=== PATIENT | male | born 1955 | race Caucasian/White ===

== ENCOUNTER 2018-05-19 17:45 | Emergency (ER) | payer OTHER ==
[2018-05-19 17:51] VITALS: BP 158/85
--- NOTE | 2018-05-19 18:18 | ER Document Report ---
ED Medical Screen (RME) - General Chief Complaint: Leg Pain Stated Complaint: LEG PAIN Time Seen by Provider: 05/19/18 18:09 Mode of Arrival: Ambulatory Information source: Patient Notes: 62-year-old male presents emergency department with complaints of left lower extremity swelling, pain, warmth. He states that it started this afternoon. He denies any history of blood clots in the past. He is not currently on any medications. Patient denies any fever or chills. I have greeted and performed a rapid initial assessment of this patient. A comprehensive ED assessment and evaluation of the patient, analysis of test results and completion of the medical decision making process will be conducted by additional ED providers. PHYSICAL EXAMINATION: GENERAL: Well-appearing, well-nourished and in no acute distress. HEAD: Atraumatic, normocephalic. EYES: Pupils equal round extraocular movements intact, conjunctiva are normal. ENT: Nares patent NECK: Normal range of motion LUNGS: No respiratory distress Musculoskeletal: Normal range of motion. LLE tenderness to palpation NEUROLOGICAL: Normal speech, normal gait. PSYCH: Normal mood, normal affect. SKIN: Warm, Dry, normal turgor. erythema, warmth over the LLE. TRAVEL OUTSIDE OF THE [place] IN LAST 30 DAYS: No - Related Data Allergies/Adverse Reactions: gabapentin Allergy (Verified 05/19/18 17:46) Past Medical History - Social History Chew tobacco use (# tins/day): No Frequency of alcohol use: None Drug Abuse: None Renal/ Medical History: Denies: Hx Peritoneal Dialysis Past Surgical History: Reports: Hx Tonsillectomy Physical Exam - Vital signs Vitals: Temp Pulse Resp BP Pulse Ox 99.1 F 103 H 16 158/85 H 96 05/19/18 17:50 05/19/18 17:50 05/19/18 17:50 05/19/18 17:50 05/19/18 17:50 Course - Vital Signs Vital signs: Temp Pulse Resp BP Pulse Ox 99.1 F 103 H 16 158/85 H 96 05/19/18 17:50 05/19/18 17:50 05/19/18 17:50 05/19/18 17:50 05/19/18 17:50 Doctor's Discharge - Discharge Referrals: RJ OGDEN MD [Primary Care Provider] - Follow up as needed
[2018-05-19] MEDS ORDERED: CEPHALEXIN 500 MG CAPSULE PO ONE (19:22)
--- NOTE | 2018-05-19 19:28 | ER Document Report ---
ED General - General Chief Complaint: Leg Pain Stated Complaint: LEG PAIN Time Seen by Provider: 05/19/18 18:09 Mode of Arrival: Ambulatory Notes: Patient is a 62-year-old male with a past medical history of hypertension, obesity, tobacco abuse who presents with 12-24 hours of progressively worsening erythema and pain over the left mid tibial surface. Patient states the area started this morning and has gotten progressively worse over that period of time. States he was encouraged to come to the emergency department by his who is worried about the possibility of a blood clot in the leg. No history of a DVT or PE in the past. No history of similar rashes in the past. She does describe the areas have a burning, aching, moderate discomfort. Nothing improves or worsens his symptoms. He denies any history of cellulitis to the extremity in the past. States the original abrasion was from a scratch from his dog. Denies any component of a bite. No history of peripheral arterial disease or diabetes. He has not seen his primary care doctor regarding today's concerns. TRAVEL OUTSIDE OF THE [place] IN LAST 30 DAYS: No - Related Data Allergies/Adverse Reactions: gabapentin Allergy (Verified 05/19/18 17:46) Past Medical History - General Information source: Patient - Social History Smoking Status: Current Every Day Smoker Cigarette use (# per day): Yes - 1 pack/day Chew tobacco use (# tins/day): No Smoking Education Provided: Yes - Smoking cessation counseling was provided for 4 minutes at the bedside Frequency of alcohol use: None Drug Abuse: None Lives with: Spouse/Significant other Family History: Reviewed & Not Pertinent Patient has suicidal ideation: No Patient has homicidal ideation: No Renal/ Medical History: Denies: Hx Peritoneal Dialysis Past Surgical History: Reports: Hx Tonsillectomy Review of Systems - Review of Systems Notes: Constitutional: Negative for fever. HENT: Negative for sore throat. Eyes: Negative for visual changes. Cardiovascular: Negative for chest pain. Respiratory: Negative for shortness of breath. Gastrointestinal: Negative for abdominal pain, vomiting or diarrhea. Genitourinary: Negative for dysuria. Musculoskeletal: Negative for back pain. Skin: Positive for rash. Neurological: Negative for headaches, weakness or numbness. 10 point ROS negative except as marked above and in HPI. Physical Exam - Vital signs Vitals: Temp Pulse Resp BP Pulse Ox 99.1 F 103 H 16 158/85 H 96 05/19/18 17:50 05/19/18 17:50 05/19/18 17:50 05/19/18 17:50 05/19/18 17:50 Interpretation: Hypertensive, Tachycardic - Resolved at the time of my assessment Notes: PHYSICAL EXAMINATION: GENERAL: Well-appearing, well-nourished and in no acute distress. HEAD: Atraumatic, normocephalic. EYES: Pupils equal round and reactive to light, extraocular movements intact, sclera anicteric, conjunctiva are normal. ENT: nares patent, oropharynx clear without exudates. Moist mucous membranes. NECK: Normal range of motion, supple without lymphadenopathy LUNGS: Breath sounds clear to auscultation bilaterally and equal. No wheezes rales or rhonchi. HEART: Regular rate and rhythm without murmurs, 2+ DP pulses bilaterally ABDOMEN: Soft, nontender, normoactive bowel sounds. No guarding, no rebound. No masses appreciated. EXTREMITIES: Normal range of motion, no pitting or edema. No cyanosis. NEUROLOGICAL: No focal neurological deficits. Moves all extremities spontaneously and on command. PSYCH: Normal mood, normal affect. SKIN: Warm, Dry, normal turgor, there is a 5 x 3 cm area of erythema over the central left mid tibial surface with a superficial, healing, scabbed abrasion over the proximal left, medial tibial surface Course - Re-evaluation Re-evalutation: 05/19/18 19:23 Patient presents with symptoms most consistent with an acute cellulitis of the left lower extremity likely originating from a superficial scratch on the lateral aspect of the right tibial surface. Vitals within normal limits ( initial tachycardia in triage is not present on exam). Patient does not meet sepsis criteria is overall very well in appearance. Exam and history are not consistent with DVT. Venous Doppler study obtained in triage is noted to be normal. There was no purulent component to suggest MRSA infection. Patient has been started on a 7-day course of cephalexin. I have advised outpatient workup for peripheral vascular disease as patient does have lack of hair growth on the lower extremity, does have several risk factors including smoking and obesity, also reports delayed wound healing time worsening over the last several years. No evidence of critical arterial occlusion at this time as the patient does have a strong 2+ DP pulse on the left, capillary refill is less than 3 seconds in all digits of the left foot. Smoking cessation advised. At this time will discharge with return precautions and follow-up recommendations. Verbal discharge instructions given a the bedside and opportunity for questions given. Medication warnings reviewed. Patient is in agreement with this plan and has verbalized understanding of return precautions and the need for primary care follow-up in the next 24-72 hours. - Vital Signs Vital signs: Temp Pulse Resp BP Pulse Ox 99.1 F 103 H 16 158/85 H 96 05/19/18 17:50 05/19/18 17:50 05/19/18 17:50 05/19/18 17:50 05/19/18 17:50 Discharge - Discharge Clinical Impression: Cellulitis of left lower extremity, Tobacco abuse Condition: Good Disposition: HOME, SELF-CARE Additional Instructions: The rash is likely due to infection of your skin. You need to take the antibiotics as prescribed. Do not stop even if the rash goes away until you have completed all the antibiotics. The area of redness was traced out here in the emergency department with a marking pen. You need to return to emergency department if the redness spreads outside of this area by more than 2 cm in any direction. You should also return if you develop fevers with temperature greater than 101, persistent vomiting, worsening pain, or have any other symptoms that are concerning to you. Prescriptions: Cephalexin Monohydrate [Keflex 500 mg Capsule] 500 mg PO Q6H 7 Days #28 capsule Forms: Smoking Cessation Education Referrals: RJ OGDEN MD [ACTIVE STAFF] - Follow up in 3-5 days
--- NOTE | 2018-05-19 19:38 | RADIOLOGY REPORT (SQ) ---
EXAM DESCRIPTION: VENOUS UNILATERAL LOWER COMPLETED DATE/TIME: 05/19/2018 7:27 pm REASON FOR STUDY: pain left leg COMPARISON: None. TECHNIQUE: Dynamic and static bullock scale and color images acquired of the left leg venous system. Se lected spectral images acquired with additional compression and augmentation maneuvers. The contralat eral common femoral vein and saphenofemoral junction were also imaged. Images stored on PACS. LIMITATIONS: None. FINDINGS: COMMON FEMORAL: Normal phasicity, compression and augmentation. No visualized echogenic ma terial on bullock scale. No defects on color images. FEMORAL: Normal compression and augmentation. No visualized echogenic material on bullock scale. No defe cts on color images. POPLITEAL: Normal compression, augmentation. No visualized echogenic material on bullock scale. No defec ts on color images. CALF VESSELS: Normal compression, augmentation. No visualized echogenic material on bullock scale. No de fects on color images. GSV and SSV: Normal compression, augmentation. No visualized echogenic material on bullock scale. No def ects on color images. ANY DEEP VENOUS INSUFFICIENCY: Not evaluated. ANY EVIDENCE OF POPLITEAL CYST: No. OTHER: No other significant finding. CONTRALATERAL COMMON FEMORAL VEIN AND SAPHENOFEMORAL JUNCTION: Normal phasicity, compression and augmentation. No visualized echogenic material on bullock scale. No de fects on color images. IMPRESSION: NO EVIDENCE OF DVT OR SVT IN THE LEFT LEG. TECHNICAL DOCUMENTATION: JOB ID: [id number] [employer]- All Rights Reserved Reading location - IP/workstation name: [email or web address]
== END 2018-05-19 20:28 | disposition home or self-care (01) ==
LOC: ER 17:45
DX: L03.116 Cellulitis of left lower limb (principal); M79.605 Pain in left leg; R21 Rash and other nonspecific skin eruption; I10 Essential (primary) hypertension; F17.210 Nicotine dependence, cigarettes, uncomplicated
CPT/HCPCS: 93971; 99284; 99406

== ENCOUNTER 2018-05-20 09:14 | Emergency (ER) | payer OTHER ==
--- NOTE | 2018-05-20 09:41 | ER Document Report ---
ED Medical Screen (RME) - General Chief Complaint: Leg Swelling Stated Complaint: LEG REDNESS Time Seen by Provider: 05/20/18 09:39 Mode of Arrival: Ambulatory Information source: Patient TRAVEL OUTSIDE OF THE [place] IN LAST 30 DAYS: No - HPI Patient complains to provider of: Redness L leg Onset: Yesterday - pt seen yesterday for redenss to L leg (U/S neg for DVT) -- told to RTED if redness increased. Pt here for this - Related Data Allergies/Adverse Reactions: gabapentin Allergy (Verified 05/19/18 17:46) Past Medical History Renal/ Medical History: Denies: Hx Peritoneal Dialysis Past Surgical History: Reports: Hx Tonsillectomy Physical Exam - Vital signs Vitals: Temp Pulse Resp BP Pulse Ox 99.1 F 95 24 H 145/69 H 95 05/20/18 09:31 05/20/18 09:31 05/20/18 09:31 05/20/18 09:31 05/20/18 09:31 Course - Vital Signs Vital signs: Temp Pulse Resp BP Pulse Ox 99.1 F 95 24 H 145/69 H 95 05/20/18 09:31 05/20/18 09:31 05/20/18 09:31 05/20/18 09:31 05/20/18 09:31 Doctor's Discharge - Discharge Referrals: MIKE LEMA MD [Primary Care Provider] - Follow up as needed
[2018-05-20 10:06] LABS: HEMATOCRIT 46.6 % (37.9-51.0); HEMOGLOBIN 16.3 g/dL (13.5-17.0); MEAN CORPUSCULAR HEMOGLOBIN 32.1 pg (27.0-33.4); MEAN CORPUSCULAR VOLUME 92 fl (80-97); PLATELET COUNT 288 10^3/uL (150-450); RED BLOOD COUNT 5.08 10^6/uL (4.35-5.55); RED CELL DISTRIBUTION WIDTH 13.5 % (11.5-14.0)
[2018-05-20 10:20] LABS: ALANINE AMINOTRANSFERASE 40 U/L (21-72); ALBUMIN 4.4 g/dL (3.5-5.0); ALKALINE PHOSPHATASE 53 U/L (38-126); ANION GAP 16 (5-19); ASPARTATE AMINO TRANSFERASE 21 U/L (17-59); BILIRUBIN,DIRECT 0.3 mg/dL (0.0-0.4); BILIRUBIN,TOTAL 1.3 mg/dL (0.2-1.3); BLOOD UREA NITROGEN 11 mg/dL (7-20); CALCIUM 8.9 mg/dL (8.4-10.2); CARBON DIOXIDE 24 mmol/L (22-30); CHLORIDE 100 mmol/L (98-107); GLUCOSE 114 mg/dL (75-110); POTASSIUM 3.9 mmol/L (3.6-5.0); SODIUM 139.6 mmol/L (137-145); TOTAL PROTEIN 7.2 g/dL (6.3-8.2)
[2018-05-20 10:33] LABS: ABSOLUTE MONOCYTES # (MANUAL) 2.3 10^3/uL (0.1-1.4); ABSOLUTE NEUTROPHILS# (MANUAL) 17.5 10^3/uL (1.7-8.2); BASOPHILS % (MANUAL) 1 % (0-2); EOSINOPHILS % (MANUAL) 0 % (0-6); LYMPHOCYTES % (MANUAL) 13 % (13-45); MONOCYTES % (MANUAL) 10 % (3-13); PLATELET COMMENT ADEQUATE; RBC MORPHOLOGY COMMENT NORMO-CYTIC/CHROMIC; SEGMENTED NEUTROPHILS % (MAN) 76 % (42-78); TOTAL CELLS COUNTED 100
[2018-05-20] MEDS ORDERED: CEPHALEXIN 500 MG CAPSULE PO ONE (11:52)
--- NOTE | 2018-05-20 12:46 | ER Document Report ---
ED Extremity Problem, Lower - General Chief Complaint: Leg Swelling Stated Complaint: LEG REDNESS Time Seen by Provider: 05/20/18 09:39 Mode of Arrival: Ambulatory Information source: Patient TRAVEL OUTSIDE OF THE [place] IN LAST 30 DAYS: No - HPI Patient complains to provider of: Other - 62-year-old man that presents for recheck of his cellulitis. He notes that he got a dose of medication last night and then took a single dose this morning but his noted that the redness seemed to have spread slightly outside of the area it had been in so he represented to the emergency room, he otherwise has no complaints says that he feels pretty well and thinks that the swelling has gone down since last but that his was concerned because of the redness seemed to have spread around the leg even though it was getting less close to his body. No fevers no chills no shortness of breath no abdominal pain no chest pain no other rashes that he is noticed - Related Data Allergies/Adverse Reactions: gabapentin Allergy (Verified 05/20/18 09:42) Past Medical History - General Information source: Patient - Social History Smoking Status: Current Every Day Smoker Chew tobacco use (# tins/day): No Frequency of alcohol use: None Drug Abuse: None Family History: Reviewed & Not Pertinent Patient has suicidal ideation: No Patient has homicidal ideation: No Renal/ Medical History: Denies: Hx Peritoneal Dialysis Past Surgical History: Reports: Hx Tonsillectomy Review of Systems - Review of Systems -: Yes All other systems reviewed and negative Physical Exam - Vital signs Vitals: Temp Pulse Resp BP Pulse Ox 99.1 F 95 24 H 145/69 H 95 05/20/18 09:31 05/20/18 09:31 05/20/18 09:31 05/20/18 09:31 05/20/18 09:31 - General General appearance: Appears well In distress: None - HEENT Head: Normocephalic, Atraumatic Eyes: Normal Pupils: PERRL - Respiratory Respiratory status: No respiratory distress Chest status: Nontender Breath sounds: Normal Chest palpation: Normal - Cardiovascular Rhythm: Regular Heart sounds: Normal auscultation Murmur: No - Abdominal Inspection: Normal Distension: No distension Bowel sounds: Normal Tenderness: Nontender Organomegaly: No organomegaly - Back Back: Normal, Nontender - Extremities General upper extremity: Normal inspection, Nontender, Normal color, Normal ROM , Normal temperature General lower extremity: Normal weight bearing, Other - The lower extremities are relatively symmetric in size, the left lower extremity demonstrates an erythematous confluent rash primarily over the mid bhatia and distally with pen marking the outside edge, there is modest erythema extending beyond the outside edge of the pen marking. No: John's sign - Neurological Neuro grossly intact: Yes Cognition: Normal Orientation: AAOx4 [place] Coma Scale Eye Opening: Spontaneous [place] Coma Scale Verbal: Oriented [place] Coma Scale Motor: Obeys Commands [place] Coma Scale Total: 15 Speech: Normal Motor strength normal: LUE, RUE, LLE, RLE Sensory: Normal - Psychological Associated symptoms: Normal affect, Normal mood Course - Re-evaluation Re-evalutation: 05/22/18 20:38 62-year-old man who presents for a cellulitis check. He otherwise is feeling improved from last night has taken 2 doses of antibiotics but there was modest worsening of the redness as far as spreading outside of the area it had been in. The leg however itself looks improved from previous according to the gentleman. He looks in no obvious distress or systemically ill. Given that he is only had 12 hours of antibiotics do not believe this represents a true outpatient failure of treatment at this time, plan for this patient to undergo discharge with return precautions we will add doxycycline to his antibiotic regimen to cover presumptively for MRSA though I believe likely the Keflex is probably adequate in itself. Incidentally this patient had labs drawn through triage which demonstrate a leukocytosis consistent with his known infection, it is a prominent leukocytosis of 23,000 however the patient clinically is substantially more well-appearing, he does not complain of any pain and there is no other obvious signs of injury. He and his in agreement with course of action at this time will plan for discharge with return precautions and encouraged follow-up for a wound recheck in 48 hours. - Vital Signs Vital signs: Temp Pulse Resp BP Pulse Ox 98.3 F 80 18 127/67 H 96 05/20/18 13:00 05/20/18 13:00 05/20/18 13:00 05/20/18 13:00 05/20/18 13:00 - Laboratory Result Diagrams: 05/20/18 09:50 05/20/18 09:50 Laboratory results interpreted by me: 05/20/18 05/20/18 09:50 09:50 WBC 23.0 H Abs Neuts (Manual) 17.5 H Abs Monocytes (Manual) 2.3 H Glucose 114 H Discharge - Discharge Clinical Impression: Cellulitis of left lower extremity Condition: Good Disposition: HOME, SELF-CARE Additional Instructions: He was seen today for the cellulitis in your left lower extremity. He had evaluation including a physical exam as well as blood tests. He was seen last night for this cellulitis as well. It looks like the cellulitis is getting better. Continue to use the Keflex prescribed to you. If you feel like there is any change in this or begins to spread up your leg, you begin to have fevers chills or feel worse she should return to the emergency room. Otherwise it is reasonable to keep an appointment this week with your primary physician for a wound check. The antibiotic prescribed to you does not cover for MRSA because of this I did add a prescription which will cover for MRSA. Prescriptions: Doxycycline Hyclate 100 mg PO BID #14 capsule Referrals: MIKE LEMA MD [Primary Care Provider] - Follow up as needed
[2018-05-20 13:00] VITALS: BP 127/67
== END 2018-05-20 13:00 | disposition home or self-care (01) ==
LOC: ER 09:14
DX: L03.116 Cellulitis of left lower limb (principal); F17.200 Nicotine dependence, unspecified, uncomplicated; Z88.6 Allergy status to analgesic agent
CPT/HCPCS: 36415; 80053; 85025; 87040; 99283